=== PATIENT | male | born 1955 | race Caucasian/White ===

== ENCOUNTER 2025-06-15 10:11 | Outpatient (CLI) | payer MEDICARE, OTHER ==
[2025-06-15 11:14] LABS: CREATININE 0.87 MG/DL (0.60-1.10); TOTAL CARBON DIOXIDE 29.3 MMOL/L (24-32); eGFR 87 ML/MIN
--- NOTE | 2025-06-15 13:03 | RADIOLOGY REPORT ---
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 COMPARISON: None FINDINGS: [PARENCHYMA]: Significant abnormal mass status post resection involving nearly the entirety of the left temporal lobe with persistent areas of significant nodular enhancement along the margin of the resection cavity. Overall size measures 6.9 x 3.8 cm in axial dimension. Intrinsic T1 hyperintensity of the central aspect of the lesion. Overlying blood products deep to the area of craniotomy measuring 5.4 cm in length. Question abnormal bilateral frontal pachymeningeal enhancement with thick appearance. Extra-axial dural extension /metastasis not excluded. T2/FLAIR hyperintensities, which are nonspecific however most likely represent chronic microvascular ischemic change. Diffusion restriction in the areas of blood products along the margin resection cavity. [VENTRICLES]: No hydrocephalus. [EXTRA-AXIAL SPACES]: Overlying blood products deep to the craniotomy measuring 5.4 cm in length. [EXTRA-CRANIAL STRUCTURES]: The bony structures are intact. Visualized portions of the paranasal sinuses and mastoid air cells are essentially clear. IMPRESSION: 1. Significant abnormal mass status post resection involving nearly the entirety of the left temporal lobe with persistent areas of abnormal nodular enhancement primarily along the posterior aspect. 2. Overall size of the resection cavity measures 6.9 x 3.8 cm in axial dimension. 3. Intrinsic T1 hyperintensity of the central aspect of the lesion. 4. Overlying blood products deep to the area of craniotomy measuring 5.4 cm in length. 5. Question abnormal bilateral frontal pachymeningeal enhancement with thick appearance. 6. Extra-axial dural extension /metastasis not excluded.
[2025-06-15] MEDS ORDERED: GADOTERATE MEGLUMINE 7.5 MMOL/15 ML VIAL IV ONE (13:04)
== END 2025-06-15 23:59 | disposition home or self-care (01) ==
LOC: MRI 10:11
PROVIDERS: ATTEND Internal Medicine Nephrology
DX: C71.2 Malignant neoplasm of temporal lobe (principal)
CPT/HCPCS: 36415; 70553; 80053; A9575